=== PATIENT | female | born 1965 | race Caucasian/White ===

== ENCOUNTER 2017-07-17 10:32 | Inpatient (IN) | payer OTHER, BC, MEDICARE ==
[2017-07-17] MEDS ORDERED: BENZONATATE 100 MG CAP PO (17:45)
[2017-07-17] MEDS: AZITHROMYCIN 250 MG TAB PO (18:21)
[2017-07-17] MEDS: MONTELUKAST 10 MG TAB PO (22:26)
[2017-07-17] MEDS: traZODone 50 MG TAB PO (22:26)
[2017-07-17] MEDS: PARoxetine 20 MG TAB PO (22:26)
[2017-07-17] MEDS: CETIRIZINE (ZyrTEC) 10 MG TAB PO (22:26)
[2017-07-17] MEDS: QUEtiapine FUMARATE 100 MG TAB PO (22:26)
[2017-07-17] MEDS: SIMVASTATIN 40 MG TAB PO (22:26)
[2017-07-18] MEDS: QUEtiapine FUMARATE 100 MG TAB PO (08:35)
[2017-07-18] MEDS: AZITHROMYCIN 250 MG TAB PO ×2 (09:00→20:40)
[2017-07-18 10:28] LABS: KETONE, URINE AUTO RFX NEGATIVE (NEGATIVE); LEUKOCYTE ESTERASE UR AUTO RFX NEGATIVE (NEGATIVE); MUCUS, URINE RFX SMALL (NEGATIVE); NITRITE, URINE AUTO RFX NEGATIVE (NEGATIVE); RBC, URINE AUTO RFX 0 /HPF (0-3); SPECIFIC GRAVITY UR AUTO RFX 1.004 (1.002-1.035); SQUAM EPITHELIAL CELL UR AURFX 1 /HPF (0-6); WBC, URINE AUTO RFX 2 /HPF (0-3)
[2017-07-18] MEDS: HYOSCYAMINE SULFATE 0.125 MG SUBL TABLET PO (15:58)
[2017-07-18] MEDS: OLANZapine 5 MG TAB PO (20:40)
[2017-07-18] MEDS: CETIRIZINE (ZyrTEC) 10 MG TAB PO (20:40)
[2017-07-18] MEDS: PARoxetine 20 MG TAB PO (20:40)
[2017-07-18] MEDS: MONTELUKAST 10 MG TAB PO (20:40)
[2017-07-18] MEDS: SIMVASTATIN 40 MG TAB PO (20:40)
[2017-07-18] MEDS: traZODone 50 MG TAB PO (20:40)
[2017-07-18] MEDS: MIRTAZAPINE 15 MG TAB PO (20:40)
[2017-07-19] MEDS: MOM 30ML SUSPENSION UDC PO ×2 (01:30→20:58)
[2017-07-19] MEDS: HYOSCYAMINE SULFATE 0.125 MG SUBL TABLET PO (03:45)
[2017-07-19] MEDS: OLANZapine 2.5MG TABLET PO (08:04)
[2017-07-19] MEDS ORDERED: ESTRADIOL 0.0375 MG TOP (09:00)
[2017-07-19] MEDS: ACETAMINOPHEN TAB 650MG DOSE (2X325MG) PO (11:29)
[2017-07-19 14:27] LABS: BASO % 0.7 % (0.0-1.0); EOS # 0.1 10^3/uL (0.0-0.50); HEMATOCRIT 37.3 % (36.0-47.0); HEMOGLOBIN 12.6 g/dl (12.0-15.5); IMMATURE GRANULOCYTE % 0.2 % (0-3.0); LYMPH # 2.3 10^3/uL (1.5-4.5); LYMPH % 38.5 % (24.0-44.0); MEAN CORPUSCULAR HEMOGLOBIN 30.4 pg (27.0-33.0); MEAN CORPUSCULAR HGB CONC 33.8 g/dl (32.0-36.5); MEAN CORPUSCULAR VOLUME 89.9 fl (80.0-96.0); MONO # 0.6 10^3/uL (0.0-0.8); MONO % 9.2 % (0.0-5.0); NEUTROPHILS % 49.4 % (36.0-66.0); PLATELET COUNT, AUTOMATED 207 10^3/uL (150-450); RED BLOOD COUNT 4.15 10^6/uL (4.00-5.40); RED CELL DISTRIBUTION WIDTH 11.5 % (11.5-14.5)
[2017-07-19 14:59] LABS: ALBUMIN/GLOBULIN RATIO 1.43 (1.00-1.93); ALKALINE PHOSPHATASE 66 U/L (45-117); ALT/SGPT 18 U/L (12-78); ANION GAP 7 MEQ/L (8-16); AST/SGOT 15 U/L (7-37); BILIRUBIN,TOTAL 0.5 MG/DL (0.2-1.0); BLOOD UREA NITROGEN 15 MG/DL (7-18); CALCIUM LEVEL 8.9 MG/DL (8.5-10.1); CARBON DIOXIDE LEVEL 29 MEQ/L (21-32); CHLORIDE LEVEL 108 MEQ/L (98-107); CREATININE FOR GFR 0.86 MG/DL (0.55-1.30); GLOMERULAR FILTRATION RATE > 60.0 (>51); GLUCOSE, FASTING 120 MG/DL (70-100); SODIUM LEVEL 144 MEQ/L (136-145); THYROID STIMULATING HORMONE 0.961 uIU/ML (0.358-3.740); TOTAL PROTEIN 6.8 GM/DL (6.4-8.2)
[2017-07-19] MEDS: MONTELUKAST 10 MG TAB PO (20:56)
[2017-07-19] MEDS: CETIRIZINE (ZyrTEC) 10 MG TAB PO (20:56)
[2017-07-19] MEDS: MIRTAZAPINE 15 MG TAB PO (20:56)
[2017-07-19] MEDS: AZITHROMYCIN 250 MG TAB PO (20:57)
[2017-07-19] MEDS: PARoxetine 20 MG TAB PO (20:57)
[2017-07-19] MEDS: OLANZapine 5 MG TAB PO (20:57)
[2017-07-19] MEDS: SIMVASTATIN 40 MG TAB PO (20:57)
[2017-07-19] MEDS: traZODone 50 MG TAB PO (20:58)
[2017-07-19] MEDS: LITHIUM CARBONATE 300 MG **CR** TAB PO (20:58)
[2017-07-20] MEDS: GLYCERIN ADULT SUPP PR (00:58)
[2017-07-20] MEDS: LITHIUM CARBONATE 300 MG **CR** TAB PO ×2 (09:00→21:26)
[2017-07-20] MEDS: OLANZapine 5 MG TAB PO ×2 (09:00→09:30)
[2017-07-20] MEDS: MAGNESIUM CITRATE 300 ML BTL PO (09:30)
[2017-07-20] MEDS: ACETAMINOPHEN TAB 650MG DOSE (2X325MG) PO (13:42)
[2017-07-20] MEDS: hydrOXYzine 50 MG TAB PO (14:18)
[2017-07-20] MEDS: LORazepam 2 MG/ML VIAL (J2060) IM (15:36)
[2017-07-20] MEDS: MAGNESIUM CITRATE PO (20:53)
[2017-07-20] MEDS: CETIRIZINE (ZyrTEC) 10 MG TAB PO (21:24)
[2017-07-20] MEDS: MIRTAZAPINE 15 MG TAB PO (21:24)
[2017-07-20] MEDS: OLANZapine 10 MG TAB PO (21:24)
[2017-07-20] MEDS: MONTELUKAST 10 MG TAB PO (21:24)
[2017-07-20] MEDS: SIMVASTATIN 40 MG TAB PO (21:24)
[2017-07-20] MEDS: AZITHROMYCIN 250 MG TAB PO (21:25)
[2017-07-21] MEDS: ACETAMINOPHEN TAB 650MG DOSE (2X325MG) PO (04:35)
[2017-07-21] MEDS: hydrOXYzine 50 MG TAB PO (04:48)
[2017-07-21] MEDS: LITHIUM CARBONATE 300 MG **CR** TAB PO ×2 (08:53→21:46)
[2017-07-21] MEDS: OLANZapine 10 MG TAB PO ×2 (08:53→21:46)
[2017-07-21] MEDS: CETIRIZINE (ZyrTEC) 10 MG TAB PO (21:46)
[2017-07-21] MEDS: MIRTAZAPINE 15 MG TAB PO (21:46)
[2017-07-21] MEDS: AZITHROMYCIN 250 MG TAB PO (21:46)
[2017-07-21] MEDS: SIMVASTATIN 40 MG TAB PO (21:46)
[2017-07-21] MEDS: MONTELUKAST 10 MG TAB PO (21:47)
[2017-07-21] MEDS: traZODone 50 MG TAB PO (22:34)
[2017-07-22] MEDS: ACETAMINOPHEN TAB 650MG DOSE (2X325MG) PO ×2 (05:34→14:06)
[2017-07-22] MEDS: LITHIUM CARBONATE 300 MG **CR** TAB PO (08:25)
[2017-07-22] MEDS: OLANZapine 10 MG TAB PO (08:25)
[2017-07-22] MEDS: CETIRIZINE (ZyrTEC) 10 MG TAB PO (20:02)
[2017-07-22] MEDS: hydrOXYzine 50 MG TAB PO (20:03)
[2017-07-22] MEDS: SIMVASTATIN 40 MG TAB PO (20:03)
[2017-07-22] MEDS: traZODone 50 MG TAB PO (20:03)
[2017-07-22] MEDS: MONTELUKAST 10 MG TAB PO (20:03)
[2017-07-22] MEDS: MIRTAZAPINE 15 MG TAB PO (20:03)
[2017-07-22] MEDS: AZITHROMYCIN 250 MG TAB PO (20:03)
[2017-07-22] MEDS: OLANZapine 5 MG TAB PO (20:03)
[2017-07-22] MEDS: LITHIUM CARBONATE 450 MG **CR** TAB PO (20:03)
[2017-07-22] MEDS: MOM 30ML SUSPENSION UDC PO (22:58)
[2017-07-22] MEDS: MAALOX 30 ML SUSP *UDC PO (22:58)
[2017-07-23] MEDS: hydrOXYzine 50 MG TAB PO ×2 (02:59→09:54)
[2017-07-23] MEDS: OLANZapine 10 MG TAB PO (09:18)
[2017-07-23] MEDS: LITHIUM CARBONATE 450 MG **CR** TAB PO ×2 (09:19→20:52)
[2017-07-23] MEDS ORDERED: BOUDREAUX'S BUTT PASTE 4OZ TOP (10:30)
[2017-07-23] MEDS: DIAPER RELIEF PASTE (DESITIN) 60GM TOP (12:34)
[2017-07-23] MEDS: SIMVASTATIN 40 MG TAB PO (20:52)
[2017-07-23] MEDS: MIRTAZAPINE 15 MG TAB PO (20:52)
[2017-07-23] MEDS: CETIRIZINE (ZyrTEC) 10 MG TAB PO (20:52)
[2017-07-23] MEDS: AZITHROMYCIN 250 MG TAB PO (20:52)
[2017-07-23] MEDS: MONTELUKAST 10 MG TAB PO (20:52)
[2017-07-23] MEDS: OLANZapine 5 MG TAB PO (20:52)
[2017-07-23] MEDS: traZODone 50 MG TAB PO (22:30)
[2017-07-24] MEDS: hydrOXYzine 50 MG TAB PO (03:17)
[2017-07-24] MEDS: OLANZapine 10 MG TAB PO (09:00)
[2017-07-24] MEDS: LITHIUM CARBONATE 450 MG **CR** TAB PO ×2 (09:00→20:23)
[2017-07-24] MEDS: MAALOX 30 ML SUSP *UDC PO (09:40)
[2017-07-24 12:19] LABS: LITHIUM LEVEL 0.74 MEQ/L (0.60-1.20)
[2017-07-24] MEDS: ACETAMINOPHEN TAB 650MG DOSE (2X325MG) PO (14:42)
[2017-07-24] MEDS: MIRTAZAPINE 15 MG TAB PO (20:24)
[2017-07-24] MEDS: OLANZapine 5 MG TAB PO (20:24)
[2017-07-24] MEDS: CETIRIZINE (ZyrTEC) 10 MG TAB PO (21:00)
[2017-07-24] MEDS: AZITHROMYCIN 250 MG TAB PO (21:00)
[2017-07-24] MEDS: MONTELUKAST 10 MG TAB PO (21:00)
[2017-07-24] MEDS: SIMVASTATIN 40 MG TAB PO (21:00)
[2017-07-25] MEDS: traZODone 50 MG TAB PO (02:35)
[2017-07-25] MEDS: ACETAMINOPHEN TAB 650MG DOSE (2X325MG) PO (02:35)
[2017-07-25] MEDS: hydrOXYzine 50 MG TAB PO (02:35)
[2017-07-25] MEDS: MAALOX 30 ML SUSP *UDC PO (04:32)
[2017-07-25] MEDS: OLANZapine 10 MG TAB PO (08:03)
[2017-07-25] MEDS: LITHIUM CARBONATE 450 MG **CR** TAB PO (08:03)
== END 2017-07-25 11:00 | disposition home or self-care (01) | DRG 753 ==
LOC: M ED 10:32 → M ED INP 15:18 → M PSY 16:24
DX: F31.63 Bipolar disorder, current episode mixed, severe, without psychotic features (principal); R45.850 Homicidal ideations; R45.851 Suicidal ideations; F43.10 Post-traumatic stress disorder, unspecified; E78.00 Pure hypercholesterolemia, unspecified; J06.9 Acute upper respiratory infection, unspecified; K58.9 Irritable bowel syndrome, unspecified; Z88.2 Allergy status to sulfonamides; Z88.8 Allergy status to other drugs, medicaments and biological substances; Z90.710 Acquired absence of both cervix and uterus; Z79.899 Other long term (current) drug therapy

== ENCOUNTER → 2022-01-01 | Outpatient (REF) | payer OTHER ==
[~2022-01-01] MED LIST: ABIL1TAB11 PO; ESTR1DIS4 TOP; HYDR1TAB33 PO; LEVOTAB10 PO; LITH45TASA PO; MIRT15TA3 PO; OLAN1TAB16 PO; OLAN1TAB20 PO; OSCI0.37 PO; PAXI40TA10 PO; PAXIL PO; SERO1TAB PO; SIMV40TA20 PO; SING10TA32 PO; TESS100C PO; TRAZ1TAB10 PO; WELCHOL PO; XANA0.5T PO; ZITHTAB PO; ZYRTEC PO; [UNRECOGNIZED DRUG - OTHER] PO; paxil PO; vicodin PO; zyrtec PO
== END ==
LOC: M LAB REF 14:35
PROVIDERS: ATTEND Surgery
DX: D23.61 Other benign neoplasm of skin of right upper limb, including shoulder (principal)